=== PATIENT | male | born 1955 | race Caucasian/White ===

== ENCOUNTER → 2024-05-06 15:11 | Outpatient (REF) | payer OTHER, SELFPAY | LOC: RAD 15:11 | PROVIDERS: ATTENDING PHYSICIAN Family Medicine | DX: R59.1 Generalized enlarged lymph nodes (principal) | CPT/HCPCS: 71250 ==

== ENCOUNTER 2024-05-30 20:30 | Inpatient (IN) | payer OTHER, SELFPAY ==
[2024-05-30] VITALS (9 sets, daily range): BP systolic 122–147; BP diastolic 72–88; BMI 25.2; BMI 24.3
[2024-05-30 13:20] LABS: % Basophils 0.1 % (0-2); % Eosinophils 0.1 % (0-6); % Immature Granulocytes 0.5 % (0-0.5); % Lymphocytes 3.5 % (20.5-51.1); % Monocytes 6.4 % (1.7-9.3); % Neutrophils 89.4 % (42.2-75.2); Absolute Immature Granulocytes 0.1 10^3/uL (0-0.05); Absolute Lymphocytes 0.5 10^3/uL (1.2-3.4); Absolute Monocytes 0.9 10^3/uL (0.1-0.6); Absolute Neutrophils 12.9 10^3/uL (1.4-6.5); Hematocrit 45.1 % (39.0-52.0); Hemoglobin 15.8 g/dL (13.0-18.0); Mean Corpuscular Hgb 28.6 pg (27.0-31.0); Mean Corpuscular Volume 81.6 fL (80.0-94.0); Mean Platelet Volume 9.5 fL (7.4-10.4); Nucleated Red Blood Cells % 0 % (-); Platelet Count 195 10^3/uL (130-400); Red Blood Cell Count 5.53 10^6/uL (4.70-6.10); Red Cell Dist. Width 12.7 % (11.5-14.5); White Blood Cell Count 14.4 10^3/uL (4.8-10.8)
[2024-05-30 13:44] LABS: ALT (SGPT) 24 U/L (0-50); AST (SGOT) 26 U/L (17-59); Albumin 4.5 g/dl (3.5-5.0); Alkaline Phosphatase 75 U/L (38-126); Blood Urea Nitrogen 16 mg/dl (9-20); Calcium 9.6 mg/dl (8.4-10.2); Carbon Dioxide 23 mmol/L (22-30); Chloride 100 mmol/L (98-107); Glucose 138 mg/dl (70-99); Lipase 36 U/L (23-300); Potassium 4.1 mmol/L (3.5-5.1); Sodium 135 mmol/L (135-145); Total Bilirubin 0.8 mg/dl (0.2-1.3); Total Protein 7.1 g/dl (6.3-8.2); eGFR > 60.00
--- NOTE | 2024-05-30 14:13 | ED.GENMED ---
History of Present Illness
<Madai Serna MD, Resident - Last Filed: 05/31/24 22:02>
General
Chief Complaint: Abdominal Pain
Time Seen by Provider: 05/30/24 13:32
History of Present Illness
History of Present Illness:
The patient is a 69 years old male presented to the ER today complaining of abdominal pain. His abdominal pain started yesterday and is localized especially on his left lower abdominal quadrant. He reports that he did throw up for 6 times since
the morning. Additionally he reports that he had his last bowel movement this morning but it was a very low amount of stool. He denied bleeding from his rectal area and he denied vomiting blood. Patient has a past medical history of many
abdominal surgeries starting in 2017 and reported his last surgery was in 2018. The patient reportedly had an operation in 2017 due a bowel perforation and ileostomy for that reason and he had a reverse surgery in 2018. The patient denied having
any other abdominal problems since 2018.
PMH: BPH
If applicable-neuro sx onset
Date of onset of symptoms: 05/30/24
<Chris Burr MD - Last Filed: 06/01/24 17:01>
General
Source: patient
Exam Limitations: none
Nursing documentation reviewed up to this point in time: agreed with
Past History
<Madai Serna MD, Resident - Last Filed: 05/31/24 22:02>
Past History
ED Past Medical History: None
ED Past Surgical History: Orthopedic
Social History
Tobacco: Non-smoker (Left rotator cuff)
Alcohol: None
Drug: None
Personal:
Living: with family
Employment: Employed
Phy Exam
<Madai Serna MD, Resident - Last Filed: 05/31/24 22:02>
General Physical Exam
General Presentation: moderate distress
General age: appears stated age
General Skin: dry
General Mental: alert
Cardiovascular Exam
Cardiovascular Exam: regular rate/rhythm and no edema
Pulmonary Exam
Pulmonary Exam: lungs clear and no respiratory distress
Gastrointestinal Exam
Gastrointestinal Exam: guarding, surgical scar (on both lower abdominal quadrants ) and tender
Palpation: left upper quadrant: Moderate tenderness and left lower quadrant: Severe tenderness
Neurological Exam
Neurological Exam: alert and oriented x3
Course
<Madai Serna MD, Resident - Last Filed: 05/31/24 22:02>
Orders/Labs/Results
Orders:
Orders
05/30/24 13:04
IV Insert/Care/Rem.- Treatment PRN
05/30/24 13:10
Complete Blood Count/With Diff Urgent
Comprehensive Metabolic Panel Urgent
Lipase Urgent
05/30/24 13:58
0.9% Sodium Chloride 500 ml [Nss] 500 ml IV BOLUS
HYDROmorphone [Dilaudid] 0.5 mg IV NOW STA
Ondansetron Injectable [Zofran] 4 mg IV NOW STA
CR Obstruct Series W/pa Chest Urgent
Comment:
Reason For Exam: ABDOMINAL PAIN
05/30/24 14:22
CT Abd/pel W Iv And Oral Contr Urgent
Comment:
Reason For Exam: LLQ pain
Iohexol [Omnipaque] See Protocol PO NOW STA
05/30/24 16:12
HYDROmorphone [Dilaudid] 0.5 mg .ROUTE .STK-MED ONE
Ondansetron Injectable [Zofran] 4 mg .ROUTE .STK-MED ONE
05/30/24 16:14
HYDROmorphone [Dilaudid] 0.5 mg IV NOW STA
Ondansetron Injectable [Zofran] 4 mg IV NOW STA
05/30/24 19:01
Admit/Transfer Patient As Directed
Co-Sign Provider:
Level of Care: Inpatient admission
Assign to:: Medical/Surgical
Physician / Group: dionisio
Diagnosis: SBO
Reason for Hospitalization: SBO
Expected length of stay greater than two midnights?: Yes
ELOS- Estimated Length of Stay in days: 3
I certify the patient meets the requirements for IP care: Yes
PRN Pain Medication Management As Directed
May give lesser potent ordered pain med per pt: Yes
preference::
Protocol:: Medication orders for pain may be administered in a
manner that supports deferring to patient preference
when the pt is:
- Requesting an ordered lesser potent pain medication.
Least to most potent pain medications are defined
as: acetaminophen < NSAID < tramadol < opioids
(morphine, oxycodone, hydromorphone).
- Requesting a lesser dose of the same medication IF
ORDERED.
- Requesting a less intrusive route of administration
if both routes are prescribed by the provider (PO <
IV).
05/30/24 19:02
Code Status As Directed
Resuscitation Status: Full Code
05/30/24 19:20
Ondansetron Injectable [Zofran] 4 mg .ROUTE .STK-MED ONE
Ondansetron Injectable [Zofran] 4 mg IV NOW STA
Ondansetron Injectable [Zofran] 4 mg IV NOW STA
05/30/24 20:20
SURGICAL CONSULT Routine
Consulting Provider: Tani Morrison
Was physician already notified: Yes
05/30/24 20:21
EKG [Electrocardiogram (*1)] Stat
Reason for Study: QTc Monitoring
05/30/24 21:12
0.9% Sodium Chloride 1000 ml [Nss] 1,000 ml IV 80 mls/hr
HYDROmorphone [Dilaudid] 0.5 mg IV Q4HPRN PRN
Ondansetron Injectable [Zofran] 4 mg IV Q6HPRN PRN
05/30/24 21:12
Activity As Directed
Activity Level: As Tolerated
Bladder Scan As Directed
Follow Bladder Retention/Intermittent Cath Algorithm?: Yes
PRN if no void in __ hours: 6
Frequency: Per Retention Algorithm
If Bladder Scan Result >: 400
then:: Straight cath
Straight Cath As Directed
Frequency: Per Retention Algorithm
Additional Instructions: straight cath as needed per acute urinary retention algorithm for 24 hrs
Additional Instructions: for bladder scan greater than 400 mL
Vital Signs As Directed
Frequency: Per unit guidelines
DX Deep Vein Thrombosis Video Routine
05/31/24 Breakfast
NPO
Allow oral meds: No
Allow clear liquids: No
05/31/24 06:56
Basic Metabolic Panel IN AM
Complete Blood Count/No Diff IN AM
05/31/24 18:00
Enoxaparin Sodium [Lovenox] 40 mg SC QPM
06/01/24 06:28
Basic Metabolic Panel IN AM
Complete Blood Count/No Diff IN AM
06/02/24 06:00
Basic Metabolic Panel IN AM
06/03/24 06:00
Basic Metabolic Panel IN AM
06/04/24 06:00
Basic Metabolic Panel IN AM
Abnormal Lab Results
05/30/24
13:10
WBC 14.4 H 10^3/uL
(4.8-10.8)
Abs Immat Gran (auto) 0.1 H 10^3/uL
(0-0.05)
Absolute Neuts (auto) 12.9 H 10^3/uL
(1.4-6.5)
Absolute Lymphs (auto) 0.5 L 10^3/uL
(1.2-3.4)
Absolute Monos (auto) 0.9 H 10^3/uL
(0.1-0.6)
Neutrophils % 89.4 H %
(42.2-75.2)
Lymphocytes % 3.5 L %
(20.5-51.1)
Glucose 138 H mg/dl
(70-99)
05/30/24 13:10
05/30/24 13:10
Vital Signs
Initial and Last Documented VS:
Initial Vital Signs
Temp Pulse Resp BP Pulse Ox
98.2 F 95 18 126/83 97
05/30/24 12:46 05/30/24 12:46 05/30/24 12:46 05/30/24 12:46 05/30/24 12:46
Last Documented Vital Signs
Temp Pulse Resp BP Pulse Ox
98.2 F 89 16 150/82 94
06/01/24 15:33 06/01/24 15:33 06/01/24 15:33 06/01/24 15:33 06/01/24 16:29
<Chris Burr MD - Last Filed: 06/01/24 17:01>
Orders/Labs/Results
Orders:
Orders
05/30/24 13:04
IV Insert/Care/Rem.- Treatment PRN
05/30/24 13:10
Complete Blood Count/With Diff Urgent
Comprehensive Metabolic Panel Urgent
Lipase Urgent
05/30/24 13:58
0.9% Sodium Chloride 500 ml [Nss] 500 ml IV BOLUS
HYDROmorphone [Dilaudid] 0.5 mg IV NOW STA
Ondansetron Injectable [Zofran] 4 mg IV NOW STA
CR Obstruct Series W/pa Chest Urgent
Comment:
Reason For Exam: ABDOMINAL PAIN
05/30/24 14:22
CT Abd/pel W Iv And Oral Contr Urgent
Comment:
Reason For Exam: LLQ pain
Iohexol [Omnipaque] See Protocol PO NOW STA
05/30/24 16:12
HYDROmorphone [Dilaudid] 0.5 mg .ROUTE .STK-MED ONE
Ondansetron Injectable [Zofran] 4 mg .ROUTE .STK-MED ONE
05/30/24 16:14
HYDROmorphone [Dilaudid] 0.5 mg IV NOW STA
Ondansetron Injectable [Zofran] 4 mg IV NOW STA
05/30/24 19:01
Admit/Transfer Patient As Directed
Co-Sign Provider:
Level of Care: Inpatient admission
Assign to:: Medical/Surgical
Physician / Group: dionisio
Diagnosis: SBO
Reason for Hospitalization: SBO
Expected length of stay greater than two midnights?: Yes
ELOS- Estimated Length of Stay in days: 3
I certify the patient meets the requirements for IP care: Yes
PRN Pain Medication Management As Directed
May give lesser potent ordered pain med per pt: Yes
preference::
Protocol:: Medication orders for pain may be administered in a
manner that supports deferring to patient preference
when the pt is:
- Requesting an ordered lesser potent pain medication.
Least to most potent pain medications are defined
as: acetaminophen < NSAID < tramadol < opioids
(morphine, oxycodone, hydromorphone).
- Requesting a lesser dose of the same medication IF
ORDERED.
- Requesting a less intrusive route of administration
if both routes are prescribed by the provider (PO <
IV).
05/30/24 19:02
Code Status As Directed
Resuscitation Status: Full Code
05/30/24 19:20
Ondansetron Injectable [Zofran] 4 mg .ROUTE .STK-MED ONE
Ondansetron Injectable [Zofran] 4 mg IV NOW STA
Ondansetron Injectable [Zofran] 4 mg IV NOW STA
05/30/24 20:20
SURGICAL CONSULT Routine
Consulting Provider: Tani Morrison
Was physician already notified: Yes
05/30/24 20:21
EKG [Electrocardiogram (*1)] Stat
Reason for Study: QTc Monitoring
05/30/24 21:12
0.9% Sodium Chloride 1000 ml [Nss] 1,000 ml IV 80 mls/hr
HYDROmorphone [Dilaudid] 0.5 mg IV Q4HPRN PRN
Ondansetron Injectable [Zofran] 4 mg IV Q6HPRN PRN
05/30/24 21:12
Activity As Directed
Activity Level: As Tolerated
Bladder Scan As Directed
Follow Bladder Retention/Intermittent Cath Algorithm?: Yes
PRN if no void in __ hours: 6
Frequency: Per Retention Algorithm
If Bladder Scan Result >: 400
then:: Straight cath
Straight Cath As Directed
Frequency: Per Retention Algorithm
Additional Instructions: straight cath as needed per acute urinary retention algorithm for 24 hrs
Additional Instructions: for bladder scan greater than 400 mL
Vital Signs As Directed
Frequency: Per unit guidelines
DX Deep Vein Thrombosis Video Routine
05/31/24 Breakfast
NPO
Allow oral meds: No
Allow clear liquids: No
05/31/24 06:56
Basic Metabolic Panel IN AM
Complete Blood Count/No Diff IN AM
05/31/24 18:00
Enoxaparin Sodium [Lovenox] 40 mg SC QPM
06/01/24 06:28
Basic Metabolic Panel IN AM
Complete Blood Count/No Diff IN AM
06/02/24 06:00
Basic Metabolic Panel IN AM
06/03/24 06:00
Basic Metabolic Panel IN AM
06/04/24 06:00
Basic Metabolic Panel IN AM
Abnormal Lab Results
05/30/24
13:10
WBC 14.4 H 10^3/uL
(4.8-10.8)
Abs Immat Gran (auto) 0.1 H 10^3/uL
(0-0.05)
Absolute Neuts (auto) 12.9 H 10^3/uL
(1.4-6.5)
Absolute Lymphs (auto) 0.5 L 10^3/uL
(1.2-3.4)
Absolute Monos (auto) 0.9 H 10^3/uL
(0.1-0.6)
Neutrophils % 89.4 H %
(42.2-75.2)
Lymphocytes % 3.5 L %
(20.5-51.1)
Glucose 138 H mg/dl
(70-99)
05/30/24 13:10
05/30/24 13:10
Vital Signs
Initial and Last Documented VS:
Initial Vital Signs
Temp Pulse Resp BP Pulse Ox
98.2 F 95 18 126/83 97
05/30/24 12:46 05/30/24 12:46 05/30/24 12:46 05/30/24 12:46 05/30/24 12:46
Last Documented Vital Signs
Temp Pulse Resp BP Pulse Ox
98.2 F 89 16 150/82 94
06/01/24 15:33 06/01/24 15:33 06/01/24 15:33 06/01/24 15:33 06/01/24 16:29
<Madai Serna MD, Resident - Last Filed: 05/31/24 22:02>
MDM/Problems Addressed
Differential Diagnosis Includes:
Bowel obstruction/perforation, abdominal adhesions, diverticulosis
MDM/Problems Addressed:
Abdominal CR obs was ordered to assess bowel obstruction/perforation.
<Madai Serna MD, Resident - Last Filed: 05/31/24 22:02>
*Critical Care Note
Total Time (30-74mins, 75-104mins- exclusive of procedures): Not Applicable
ED Attending Note
<Madai Serna MD, Resident - Last Filed: 05/31/24 22:02>
-
Portions of this chart may have been created with voice recognition software.� Occasional wrong word or��sound alike� substitutions may have occurred due to the inherent limitations of voice recognition software.
<Chris Burr MD - Last Filed: 06/01/24 17:01>
ED Attending Note
Patient seen and examined by attending physician: Yes
ED Attending Note:
Patient presents ED secondary to sudden onset of left-sided abdominal pain associate with nausea vomiting since yesterday evening, shortly after having dinner. Abdominal pain described as sharp, crampy, nonradiating, associated with mild abdominal
distention. Denies any alleviating or exacerbating factors. Patient's abdominal surgical history is significant for previous diverticulitis, resulting in perforation, as well as ileostomy.
Physical Exam
General: moderate painful distress, not acutely ill. afebrile
Head: nc/at. eomi
Neck: supple. no meningeal signs.
Heart: s1/s2 regular rate and rhythm, no murmur. equal radial pulses.
Lungs: no acute respiratory distress. clear bilaterally
Abdomen: normal bowel sounds. moderate tenderness to palpation over LLQ with guarding. mild distention noted
Neuro: alert and oriented. no focal neurological deficits
Skin: no rash
Psychiatric: well kept. interactive and cooperative
Extremities: no edema. no calf tenderness.
Obstruction series ordered immediately, with concern for potential perforated bowel. No free air noted on x-ray, but suggestive of potential bowel obstruction. As such, CT abdomen pelvis ordered, with contrast.
CT abdomen pelvis concerning for high-grade bowel obstruction. NG tube will be placed in ED.
Dr. Morrison, colorectal surgeon, notified via [facility] text.
Critical care statement: A total of 40 minutes of critical care time was provided for this patient. This includes management of unstable vital signs, evaluation of the patient at bedside, reviewing the patient's pertinent medical records, discussion
with consultants, review of old EKGs and review of pertinent medical records. This time with separate from time utilized to perform the aforementioned documented procedures
Discharge Plan
Departure
Patient Disposition: Admit
Date of Disposition: 05/30/24
Time of Disposition: 18:25
Presentation/result/management discussed w/ accepting MD/DO: Hospitalist
Discharge Problem:
Bowel obstruction
Interventions
Interventions:
*Risk Screen - Suicide Last Done: 05/30/24 12:46
*General Assessment Last Done: 05/30/24 12:46
*Neglect/Abuse Screening Last Done: 05/30/24 12:46
ED- Fall Risk Assessment Last Done: 05/30/24 21:04
*ED COVID-19 Vaccine History Last Done: 05/30/24 21:04
*Nursing Disposition Last Done: 05/30/24 21:04
VK-Irauqq-Qakseptrae Assessment Last Done: 05/30/24 14:30
Discharge Date and Time
Discharge Date/Time: 05/30/24 21:04
[2024-05-30] MEDS: ZOFRAN 4 MG IV ×3 (14:21→19:20)
[2024-05-30] MEDS: DILAUDID 0.5 MG IV ×2 (14:23→16:15)
[2024-05-30] MEDS: NSS 500 IV (14:29)
[2024-05-30] MEDS: OMNIPAQUE 50 ML PO (14:34)
--- NOTE | 2024-05-30 18:43 | HPS.HSE ---
Family Physician
-
Family Physician: Xander Guthrie
Chief Complaint
-
left lower quadrant pain
History of Present Illness
69 years old male with past medical history for hernia, dyslipidemia, BPH, perforated bowel status post ileostomy, colostomy reversal presented to us with left lower quadrant pain radiating to his back since yesterday dinner. he walked around all
last night. he vomited couple times since last night. he is been having very small bowel since yesterday. He denied bleeding from his rectal area and he denied vomiting blood. Patient has a past medical history of many abdominal surgeries
starting in 2017 and reported his last surgery was in 2018. The patient reportedly had an operation in 2017 due a bowel perforation and ileostomy for that reason and he had a reverse surgery in 2018. The patient denied having any other abdominal
problems since 2018. denied FIELDS, dizzy or syncopal episode. denied fever, chills, chest pain ,sob. denied dysuria or hematuria.
NGT placed in ER. admitting for further management.
Medical History
Past Medical History
Past Medical History: Reports Other
Additional Past Medical History:
Umbilical hernia
Dyslipidemia
BPH
Diverticulosis
Mood disorder
Bowel perforation
Past Surgical History: Reports Other
Additional Past Surgical History:
Colostomy
Left shoulder surgery
reversal of ileostomy and colostomy
Social History
Tobacco: Former Smoker
Alcohol: Occasional
Drug: None
Employment: Employed
Family History
Family History: Not pertinent
Allergies / Home Medications
Allergies reflects when Allergies were last updated in [facility].
Home Medications with original date entered in [facility]
Allergy/Medication List:
Allergies
Allergy/AdvReac Type Severity Reaction Status Date / Time
oxycodone Allergy Unknown Unknown Verified 05/30/24 14:21
Home Medications
sertraline 25 mg tablet 25 mg PO HS 07/20/17
Iron 65 mg PO QPM 12/10/17
Prostate Plus Health Complex 1 tab PO QPM 12/10/17
lorazepam 0.5 mg tablet 0.5 mg PO PRN PRN anxiety 12/10/17
auezemky-kls-SD 0.4 mg-calcium 162 mg-iron 18 kk-cudlasa-udkvxu tablet 1 tab PO DAILY 12/10/17
cyanocobalamin (vitamin B-12) 2,500 mcg chewable tablet 2,500 mcg PO DAILY 03/15/18
glucosamine BYd-Y1-Xnvvuqpax maynor 1,500 mg-400 unit-100 mg tablet (Osteo Bi-Flex (5-Loxin)) 2 tab PO DAILY 03/15/18
Saccharomyces boulardii 250 mg capsule 250 mg PO BID #30 caps 03/25/18
hydrocodone 5 mg-acetaminophen 325 mg tablet 1 - 2 tab PO Q4HPRN PRN pain #40 tabs 03/25/18
tamsulosin 0.4 mg capsule 0.4 mg PO DAILY #14 caps 03/25/18
Review of Systems
-
Constitutional: Reports No Symptoms
EENT: Reports No Symptoms
Respiratory: Reports No Symptoms
Cardiac: Reports No Symptoms
Abdomen/GI: Reports Abdominal Pain, Nausea and Vomiting
: Reports No Symptoms
Musculoskeletal: Reports No Symptoms
Skin: Reports No Symptoms
Neurological: Reports No Symptoms
Endocrine: Reports No Symptoms
Hematologic/Lymphatic: Reports No Symptoms
Psych: Reports No Symptoms
Physical Exam
Vital Signs
Vital Signs
Temp Pulse Resp BP Pulse Ox
98.2 F 76 18 130/72 98
05/30/24 12:46 05/30/24 18:15 05/30/24 18:15 05/30/24 18:08 05/30/24 18:33
Physical Exam
General: Well Developed, Well Nourished and No Apparent Distress
HEENT: NormoCephalic, Moist mucous membranes and Atraumatic
Respiratory: Clear
Cardiac: S1/S2 and Regular Rhythm; No Murmur or Rub
GI: Normal Bowel Sounds, Tender and Distended; No Organomegaly
Rectal: Deferred by Provider
Musculoskeletal: No Clubbing, No Cyanosis and No Edema
Skin: No Rash
Neuro: AO x 3 and Nonfocal/grossly intact
Psych: Calm
Laboratory Results
-
05/30/24 13:10
05/30/24 13:10
Laboratory Results
Total Bilirubin 0.8 mg/dl (0.2-1.3) 05/30/24 13:10
AST 26 U/L (17-59) 05/30/24 13:10
ALT 24 U/L (0-50) 05/30/24 13:10
Alkaline Phosphatase 75 U/L (38-126) 05/30/24 13:10
Lipase 36 U/L (23-300) 05/30/24 13:10
Data Reviewed
-
Diagnostic Radiology: Report Reviewed by me
CT Scan: Report Reviewed by me
Lab Data: Labs Reviewed by me
Impression/Plan
-
#high grade Small bowel obstruction
#perforated diverticulum
-NGT
-NPO
-surgery consulted
-CT abdomen pelvis with Postop changes of prior partial bowel resection. There are numerous dilated loops of small bowel likely jejunum/ileum within the left hemiabdomen with transition point in the anterior lower midline abdomen, below the
umbilicus. There is associated mesenteric edema along the small bowel loops consistent with high-grade small bowel obstruction. Recommend surgical consultation.Umbilical hernia containing nonobstructed bowel.Colonic diverticulosis without evidence
of diverticulitis.
-chest abdomen x ray with Several dilated small bowel loops within the left upper quadrant and midabdomen measuring up to 4.3 cm with air-fluid levels. Scattered gas and stool within the colon. Findings of prior intra-abdominal surgery with enteric
anastomosis within the right lower quadrant pelvis. Findings suspicious for developing or partial small bowel obstruction.
-dlaudid prn for pain
-zofran prn for n/v
#leukocytosis likely reaction
-wbc 14.4
-patient is afebrile
-ctm
#BPH
-Flomax,finasteride held
-bladder scan
#DVT prophylaxis
-Lovenox
#CODE status
-full code
--- NOTE | 2024-05-30 20:28 | W.PN.UPDATE ---
Update Note
Progress Note Update
This is an addendum to the H&P written by Cristal Ferraro on 05/30/24. Patient seen and examined independently with [employer].
68-year-old male past medical history of bowel perforation status post ileostomy, colostomy status post reversal, BPH here for abdominal pain, distention and vomiting.
CT abdomen pelvis shows high-grade small bowel obstruction. NG tube placed. N.p.o. including oral medications, IV fluids, Zofran, Dilaudid, general surgery consulted.
[2024-05-30] MEDS: NSS 1000 IV (21:18)
--- NOTE | 2024-05-30 21:30 | PTCARENOTE ---
Pt is aoox3, reports abd tender but denies any pain. pt has ngt through right nare. pt placed on low intermittent suction. pt oriented to room w/ call mills in reach.
[2024-05-31] MEDS: CHLORASEPTIC/SORE THROAT SPRAY 2 SPRAY PO (06:00)
[2024-05-31 07:12] VITALS: BP 129/72
--- NOTE | 2024-05-31 07:34 | W.PN.HOSP.TC ---
Today's Communication/Plan
-
see bold
Assessment / Plan
Assessment / Plan
HPI: 69 years old male with past medical history for hernia, dyslipidemia, BPH, perforated bowel status post ileostomy, colostomy reversal presented to us with left lower quadrant pain radiating to his back since yesterday dinner. he walked around
all last night. he vomited couple times since last night. he is been having very small bowel since yesterday. He denied bleeding from his rectal area and he denied vomiting blood. Patient has a past medical history of many abdominal surgeries
starting in 2017 and reported his last surgery was in 2018. The patient reportedly had an operation in 2017 due a bowel perforation and ileostomy for that reason and he had a reverse surgery in 2018. The patient denied having any other abdominal
problems since 2018. denied FIELDS, dizzy or syncopal episode. denied fever, chills, chest pain ,sob. denied dysuria or hematuria.
#Acute partial small bowel obstruction
H/o Mukul's and subsequent ileostomy with reversal with Dr. Kaiser
Appreciate general surgery input, no plans for urgent surgery
continue NG tube, n.p.o., IV fluids, bowel rest
#Leukocytosis
Reactive, resolved
Monitor off antibiotic
#Anxiety
Hold Ativan
#Benign prostatic hypertrophy
Hold Flomax, finasteride�tadalafil
DVT prophylaxis�subcu Lovenox
Full code
Total time spent to see the patient on the floor, examine the patient, review data and lab results, discuss treatment plan with patient, nursing staff around 40 minutes.
Physical Exam
General: No acute distress
HEENT: Normocephalic, Atraumatic, EOMI, MMM
Respiratory: Clear to Auscultation bilaterally
Cardiac: Normal S1/S2, Regular Rate and Rhythm
GI: Soft, Nontender, Nondistended, Normal Bowel Sounds
Extremities: No Clubbing, Cyanosis, or Edema
Neuro: Nonfocal/Grossly Intact
Psych: Calm, Cooperative
Derm: No Visible lesions
Anticipated Discharge: > 48 hours
Subjective/Interval History
-
Date of Service: May 31, 2024
Patient reports abdominal pain resolved. He is passing gas. No bowel movement. He complains of a sore throat. No nausea.
Objective Data
-
Labs:
Laboratory Results
05/31/24
06:56
WBC Pending
Hgb Pending
Hct Pending
Plt Count Pending
Sodium Pending
Potassium Pending
Chloride Pending
Carbon Dioxide Pending
BUN Pending
Creatinine Pending
Glucose Pending
Calcium Pending
Vital Signs:
Vital Signs
Temp Pulse Resp BP Pulse Ox
98.2 F 82 18 124/74 94
05/31/24 04:34 05/30/24 23:28 05/30/24 23:28 05/30/24 23:28 05/30/24 23:28
I&O
05/30/24 05/31/24 06/01/24
06:59 06:59 06:59
Intake Total 1380 / 1380
Output Total 360 / 360
Balance 1020 / 1020
[2024-05-31 07:57] LABS: Hemoglobin 14.7 g/dL (13.0-18.0); Mean Corp Hgb Conc. 34.2 g/dL (33.0-37.0); Mean Corpuscular Hgb 28.9 pg (27.0-31.0); Mean Corpuscular Volume 84.5 fL (80.0-94.0); Mean Platelet Volume 9.9 fL (7.4-10.4); Platelet Count 191 10^3/uL (130-400); Red Blood Cell Count 5.09 10^6/uL (4.70-6.10); Red Cell Dist. Width 13.2 % (11.5-14.5); White Blood Cell Count 8.7 10^3/uL (4.8-10.8)
[2024-05-31] MEDS: ZOFRAN 4 MG IV (09:16)
[2024-05-31] MEDS: NSS 1000 IV ×2 (09:39→21:52)
[2024-05-31 09:44] LABS: Blood Urea Nitrogen 17 mg/dl (9-20); Calcium 8.6 mg/dl (8.4-10.2); Carbon Dioxide 27 mmol/L (22-30); Chloride 101 mmol/L (98-107); Estimated Creatinine Clearance 61 ml/min; Glucose 104 mg/dl (70-99); Potassium 3.9 mmol/L (3.5-5.1); Sodium 137 mmol/L (135-145); eGFR > 60.00
--- NOTE | 2024-05-31 12:19 | CON.GS ---
Medical History
-
Chief Complaint: abdominal pain/n/v
History of Present Illness:
68 yo male with a h/o perforated diverticulitis requiring Mukul's resection 07/2017 which was later reversed with loop ileostomy creation for protection of the anastomosis site 12/2017 with takedown of the ileostomy and SBR 03/[address] Kaiser
who presented yesterday with nausea and vomiting with LLQ pain for about 24 hours. An NGT was placed in the ED with initially high outputs reported which has dropped off significantly since that time. He notes some passage of flatus this am and
overall feeling better although he has had some nausea. LLQ tenderness persists with mild to moderate distention noted.
Past Medical History
Past Medical History: Diverticulitis, Hypercholesterolemia and Other (BPH)
Past Surgical History: Bowel Resection (Harmann's 2016, colostomy reversal with loop ileostomy 2017 and then takedown of ileostomy later that year) and Orthopedic (left shoulder)
Social History
Tobacco: Former Smoker
Alcohol: Occasional
Family History
Family History: Reviewed & Not Pertinent
Allergies / Home Medications
Allergy/AdvReac Type Severity Reaction Status Date / Time
oxycodone Allergy Unknown Unknown Verified 05/30/24 14:21
�Medication �Instructions �Recorded �Confirmed �Type
lorazepam 0.5 mg tablet 0.5 mg PO PRN PRN anxiety 12/10/17 05/30/24 History
finasteride 5 mg-tadalafil 5 mg 1 cap PO DAILY 05/30/24 05/30/24 History
capsule
tamsulosin 0.4 mg capsule 0.8 mg PO DAILY 05/30/24 05/30/24 History
Review of Systems
-
History Source: Patient and Family
All other systems: Negative unless noted
A 10 point review of systems was completed, and was negative except as per HPI.
Physical Exam
Vital Signs
Temp Pulse Resp BP Pulse Ox
98.8 F 83 16 129/72 96
05/31/24 07:12 05/31/24 07:12 05/31/24 07:12 05/31/24 07:12 05/31/24 07:12
05/30/24 05/31/24 06/01/24
06:59 06:59 06:59
Actual Weight 70.449 kg
Body Mass Index (BMI) 24.3
Lab Results
05/31/24 06:56
05/31/24 06:56
WBC 8.7 10^3/uL (4.8-10.8) 05/31/24 06:56
Hgb 14.7 g/dL (13.0-18.0) 05/31/24 06:56
Hct 43.0 % (39.0-52.0) 05/31/24 06:56
Plt Count 191 10^3/uL (130-400) 05/31/24 06:56
Abs Immat Gran (auto) 0.1 10^3/uL (0-0.05) H 05/30/24 13:10
Neutrophils % 89.4 % (42.2-75.2) H 05/30/24 13:10
Physical Exam
General: Well Developed and Well Nourished
HEENT: Normocephalic and Moist Mucous Membranes
GI: Soft, Tender (LLQ ), Distended and Other (UH present, soft/reducible)
Skin: Warm and Dry
Neuro: Awake, Alert and AO x 3
Psych: Calm
Data Reviewed
-
CT Scan: Image Personally Visualized and interpreted, Report Reviewed by me, Discussed with Physician and Discussed with Patient
Labs: Labs Reviewed by me, Discussed with Physician and Discussed with Patient
Old Records: Reviewed
Assessment / Plan
-
68 yo male with a h/o Mukul's and subsequent ileostomy with reversal with Dr. Kaiser who presented with n/v/LLQ abdominal pain through the ED yesterday. NGT placed with relief of symptoms. Some discomfort and distention persists. CT imaging
consistent with adhesive SBO, UH present and containing bowel but not causing this obstruction. AFVSS. Leukocytosis present on admission and now resolved. Starting to pass some flatus suggestive of a partial obstruction.
--C/W NGT to suction
--NPO/IVF
--XR of ABD this am
--No plans for urgent surgery. Will follow with bowel rest/decompression and supportive measures for improvement at this time
Medical management as per primary team
--- NOTE | 2024-05-31 15:40 | CM ---
met with patient at bedside.patient lives alone in an apt with no kinsey,his bed and bath is on first level,he amb i and is I with his adl.
his pcp is dr alyse orellana and he uses [facility] in [place].he has had a vn through [facility] but no ip rehab episodes.
PMH:diverticulitis,left rottor cuff problem,bowel perforation with ileostomy 2017,then ileostomy reversal in 2018, bph
patient adm with sbo.he has an ngt to low suction,ivf,iv dialuaid,iv zofran.plan is:dc home with no needs when stable for dc.
[2024-05-31 15:45] VITALS: BP 135/77
[2024-05-31] MEDS: LOVENOX 40 MG SC (17:53)
[2024-05-31 23:00] VITALS: BP 135/76
[2024-06-01 07:01] LABS: Hematocrit 38.8 % (39.0-52.0); Hemoglobin 13.3 g/dL (13.0-18.0); Mean Corp Hgb Conc. 34.3 g/dL (33.0-37.0); Mean Corpuscular Hgb 28.5 pg (27.0-31.0); Mean Corpuscular Volume 83.3 fL (80.0-94.0); Mean Platelet Volume 9.6 fL (7.4-10.4); Platelet Count 178 10^3/uL (130-400); Red Blood Cell Count 4.66 10^6/uL (4.70-6.10); Red Cell Dist. Width 13.2 % (11.5-14.5); White Blood Cell Count 8.8 10^3/uL (4.8-10.8)
[2024-06-01 07:18] LABS: Blood Urea Nitrogen 15 mg/dl (9-20); Calcium 8.6 mg/dl (8.4-10.2); Carbon Dioxide 28 mmol/L (22-30); Chloride 104 mmol/L (98-107); Estimated Creatinine Clearance 74 ml/min; Glucose 92 mg/dl (70-99); Magnesium 2.1 mg/dl (1.6-2.3); Phosphorus 2.9 mg/dl (2.5-4.5); Potassium 3.5 mmol/L (3.5-5.1); Sodium 139 mmol/L (135-145); eGFR > 60.00
[2024-06-01 07:52] VITALS: BP 145/79
--- NOTE | 2024-06-01 08:24 | W.PN.HOSP.TC ---
Today's Communication/Plan
-
see bold
Assessment / Plan
Assessment / Plan
HPI: 69 years old male with past medical history for hernia, dyslipidemia, BPH, perforated bowel status post ileostomy, colostomy reversal presented to us with left lower quadrant pain radiating to his back since yesterday dinner. he walked around
all last night. he vomited couple times since last night. he is been having very small bowel since yesterday. He denied bleeding from his rectal area and he denied vomiting blood. Patient has a past medical history of many abdominal surgeries
starting in 2017 and reported his last surgery was in 2018. The patient reportedly had an operation in 2017 due a bowel perforation and ileostomy for that reason and he had a reverse surgery in 2018. The patient denied having any other abdominal
problems since 2018. denied FIELDS, dizzy or syncopal episode. denied fever, chills, chest pain ,sob. denied dysuria or hematuria.
#Acute partial small bowel obstruction
H/o Mukul's and subsequent ileostomy with reversal with Dr. Kaiser
Appreciate general surgery input, no plans for urgent surgery
Abdominal x-ray today with improvement
Currently with NG tube, for clamp trial today
Continue IV fluids, possibly for clears if he does well
#Leukocytosis
Reactive, resolved
Monitor off antibiotic
#Anxiety
Hold po Ativan
#Benign prostatic hypertrophy
Hold Flomax, finasteride�tadalafil
DVT prophylaxis�subcu Lovenox
Full code
Total time spent to see the patient on the floor, examine the patient, review data and lab results, discuss treatment plan with patient, nursing staff around 38 minutes.
Physical Exam
General: No acute distress
HEENT: Normocephalic, Atraumatic, EOMI, MMM, +NGT
Respiratory: Clear to Auscultation bilaterally
Cardiac: Normal S1/S2, Regular Rate and Rhythm
GI: Soft, Nontender, Nondistended, hypoactive bowel sounds
Extremities: No Clubbing, Cyanosis, or Edema
Neuro: Nonfocal/Grossly Intact
Psych: Calm, Cooperative
Anticipated Discharge: 24 - 48 hours
Subjective/Interval History
-
Date of Service: June 01, 2024
Patient had flatus and stool. No nausea, no vomiting. No fever.
Objective Data
-
Labs:
Laboratory Results
06/01/24
06:28
WBC 8.8
Hgb 13.3
Hct 38.8 L
Plt Count 178
Sodium 139
Potassium 3.5
Chloride 104
Carbon Dioxide 28
BUN 15
Creatinine 0.9
Glucose 92
Calcium 8.6
Vital Signs:
Vital Signs
Temp Pulse Resp BP Pulse Ox
98 F 80 16 135/76 93
05/31/24 23:00 05/31/24 23:00 05/31/24 23:00 05/31/24 23:00 05/31/24 23:00
I&O
05/31/24 06/01/24 06/02/24
06:59 06:59 06:59
Intake Total 1380 / 1380 2100 / 2100
Output Total 360 / 360 900 / 900
Balance 1020 / 1020 1200 / 1200
[2024-06-01] MEDS: NSS with KCL 20 MEQ 1000 IV ×2 (10:04→21:33)
--- NOTE | 2024-06-01 12:57 | W.PN.GS2 ---
Today's Communication / Plan
-
Clamp trial
Assessment / Plan
-
68 yo male with a h/o Mukul's with pSBO secondary to adhesions
AFVSS
Clinically improving with flatus/stool. Some improvement on f/u XR as well
--Clamp trial of ngt. Ok for clears if does well.
--Continue IVF
--No plans for urgent surgery. Will follow with bowel rest/decompression and supportive measures for improvement at this time
Medical management as per primary team
Subjective Data
-
Date of Service: June 01, 2024
Patient seen and examined at bedside with Dr. Morrison. Denies n/v. Passing flatus and had a BM. Pain improved.
Objective Data
-
Intake and Output
05/31/24 06/01/24 06/02/24
06:59 06:59 06:59
Intake Total 1380 / 1380 2100 / 2100
Output Total 360 / 360 900 / 900
Balance 1020 / 1020 1200 / 1200
Intake:
Oral fluids 90 / 90
IV fluids (Total) 780 / 780 1920 / 1920
Amount instilled into GI Tube ( 600 / 600 90 / 90
Total)
[place] Sump 600 / 600 90 / 90
Output:
Gastrointestinal tube output ( 60 / 60 400 / 400
Total)
[place] Sump 60 / 60 400 / 400
Urine, Voided 300 / 300 500 / 500
Other:
Number of approximated MODERATE 1
amounts of urine
Vital Signs
Temp Pulse Resp BP Pulse Ox
98.2 F 79 16 145/79 97
06/01/24 07:52 06/01/24 07:52 06/01/24 07:52 06/01/24 07:52 06/01/24 09:03
Lab Results
06/01/24 06:28
06/01/24 06:28
Calcium 8.6 mg/dl (8.4-10.2) 06/01/24 06:
Phosphorus 2.9 mg/dl (2.5-4.5) 06/01/24 06:28
Magnesium 2.1 mg/dl (1.6-2.3) 06/01/24 06:28
Total Bilirubin 0.8 mg/dl (0.2-1.3) 05/30/24 13:10
AST 26 U/L (17-59) 05/30/24 13:10
ALT 24 U/L (0-50) 05/30/24 13:10
Alkaline Phosphatase 75 U/L (38-126) 05/30/24 13:10
Total Protein 7.1 g/dl (6.3-8.2) 05/30/24 13:10
Albumin 4.5 g/dl (3.5-5.0) 05/30/24 13:10
Physical Exam
-
NAD
ABD soft, mild distention, NT
--- NOTE | 2024-06-01 15:25 | PTCARENOTE ---
Rt nares NGT clamped from 11:00 am to 15:00; placed back to LIWS- 100 ml dark brown secretions drained into suction container. Pt's abd soft, non-tender; no c/o abd discomfort/nausea during NGT clamping trial. Pt reports (+) flatus. NGT removed
as ordered, pt to start clear liquid diet. Thien RAJPUT notified. Will continue to monitor.
[2024-06-01 15:33] VITALS: BP 150/82
--- NOTE | 2024-06-01 16:29 | PTCARENOTE ---
Pt AAO x3, MCCARTY well, ambulatory in room/all, brit well. VSS. On room air- pulse ox 94%. Abd soft, rounded, brit clear liquids; no c/o abd discomfort/nausea with PO intake. Voiding in BR without difficulty IVF's NSS with 20 Meq KCl @ 80 ml/hr
infusing via Rt AC site without sx of infiltration Resting in bed at present. Will continue to monitor.
[2024-06-01] MEDS: LOVENOX 40 MG SC (17:57)
[2024-06-01 23:18] VITALS: BP 121/73
[2024-06-02 07:27] VITALS: BP 138/80
[2024-06-02 09:11] LABS: Blood Urea Nitrogen 12 mg/dl (9-20); Calcium 8.6 mg/dl (8.4-10.2); Carbon Dioxide 25 mmol/L (22-30); Chloride 106 mmol/L (98-107); Estimated Creatinine Clearance 84 ml/min; Glucose 97 mg/dl (70-99); Potassium 3.8 mmol/L (3.5-5.1); Sodium 138 mmol/L (135-145); eGFR > 60.00
--- NOTE | 2024-06-02 10:17 | CM ---
Patient seen bedside.
Patient stated he is tolerating clears and would like solid food so he can go home today.
Nursing updated.
denies home care needs.
IMM completed.
Plan: home no needs.
--- NOTE | 2024-06-02 11:40 | W.PN.GS2 ---
Today's Communication / Plan
-
LRD
Assessment / Plan
-
68 yo male with a h/o Mukul's with subsequent reversal presenting with pSBO secondary to adhesions
AFVSS
Clinically improving
--Advance to LRD
--Ok for discharge to home from surgical stnadpoint once tolerating diet
Medical management as per primary team
Subjective Data
-
Date of Service: June 02, 2024
Patient seen and examined at bedside with Dr. Dutta. Denies n/v. Passing quite a bit of flatus. No BM today. Tolerating liquids. Notes he feels hungry.
Objective Data
-
Intake and Output
06/01/24 06/02/24 06/03/24
06:59 06:59 06:59
Intake Total 2100 / 2100 1680 / 1680
Output Total 900 / 900 1150 / 1150
Balance 1200 / 1200 530 / 530
Intake:
Oral fluids 90 / 90 720 / 720
IV fluids (Total) 1920 / 1920 960 / 960
Amount instilled into GI Tube ( 90 / 90 0 / 0
Total)
[place] Sump 90 / 90 0 / 0
Output:
Gastrointestinal tube output ( 400 / 400 1150 / 1150
Total)
[place] Sump 400 / 400 1150 / 1150
Urine, Voided 500 / 500
Other:
Number of approximated MODERATE 1 3
amounts of urine
Vital Signs
Temp Pulse Resp BP Pulse Ox
98.2 F 71 20 138/80 96
06/02/24 07:27 06/02/24 07:27 06/02/24 07:27 06/02/24 07:27 06/02/24 07:27
Lab Results
06/01/24 06:28
06/02/24 07:01
Calcium 8.6 mg/dl (8.4-10.2) 06/02/24 07:01
Phosphorus 2.9 mg/dl (2.5-4.5) 06/01/24 06:28
Magnesium 2.1 mg/dl (1.6-2.3) 06/01/24 06:28
Total Bilirubin 0.8 mg/dl (0.2-1.3) 05/30/24 13:10
AST 26 U/L (17-59) 05/30/24 13:10
ALT 24 U/L (0-50) 05/30/24 13:10
Alkaline Phosphatase 75 U/L (38-126) 05/30/24 13:10
Total Protein 7.1 g/dl (6.3-8.2) 05/30/24 13:10
Albumin 4.5 g/dl (3.5-5.0) 05/30/24 13:10
Physical Exam
-
NAD
ABD soft, ND, NT
[2024-06-02] MEDS: NSS with KCL 20 MEQ IV (12:29)
--- NOTE | 2024-06-02 13:21 | W.PN.HOSP.TC ---
Today's Communication/Plan
-
D/C
Assessment / Plan
Assessment / Plan
68yo M with PMHx of BPH, anxiety, hx colostomy s/p reversal in 2018. came with abdominal pain, found partial SBO,, eventually able to tolerate diet and had BM. As per colorectal Sx - will be following him as outpatient. Medically stabkle for d/c.
A/P:
#Acute partial small bowel obstruction
H/o Mukul's and subsequent ileostomy with reversal with Dr. Kaiser
Followed by [facility]
#Leukocytosis
Reactive, resolved
Monitor off antibiotic
#Anxiety
#Benign prostatic hypertrophy
cont home meds
DVT prophylaxis� Lovenox
Full code
I have spent at least 36min preparing discharge, reviewing chart, test results and direct patient care
Anticipated Discharge: Today
Subjective/Interval History
-
Date of Service: June 02, 2024
Objective Data
-
Labs:
Laboratory Results
06/02/24
07:01
Sodium 138
Potassium 3.8
Chloride 106
Carbon Dioxide 25
BUN 12
Creatinine 0.8
Glucose 97
Calcium 8.6
Vital Signs:
Vital Signs
Temp Pulse Resp BP Pulse Ox
98.2 F 71 20 138/80 96
06/02/24 07:27 06/02/24 07:27 06/02/24 07:27 06/02/24 07:27 06/02/24 07:27
I&O
06/01/24 06/02/24 06/03/24
06:59 06:59 06:59
Intake Total 2100 / 2100 1680 / 1680
Output Total 900 / 900 1150 / 1150
Balance 1200 / 1200 530 / 530
Review of Systems
-
History Source: Patient
All other systems: Reviewed and negative
Physical Exam
-
General: No Apparent Distress
HEENT: Normocephalic
Respiratory: Clear to Auscultation
Cardiac: Regular Rhythm
GI: Soft, Nontender and Nondistended
Genito-urinary: No Costovertebral Tender
Musculoskeletal: No Clubbing, No Cyanosis and No Edema
Neuro: Awake, Alert, Oriented and AO x 3
Psych: Calm
--- NOTE | 2024-06-02 13:25 | W.DCSUMMARY ---
Discharge Summary
Discharge Data
Date of Admission: 05/30/24
Date of Discharge: 06/02/24
-
Pending Results: No
Hospital Course
68yo M with PMHx of BPH, anxiety, hx colostomy s/p reversal in 2018. came with abdominal pain, found partial SBO,, eventually able to tolerate diet and had BM. As per colorectal Sx - will be following him as outpatient. Medically stabkle for d/c.
Patient verbalized understanding of instructions
I have spent at least 36min preparing d/c
Patient was managed for:
#partial SBO 2/2 adhesions
#BPH
#Anxiety d/o
Discharge Plan
-
Patient Disposition: Home (Routine Discharge)
Discharge Diagnosis/Procedures: partial SBO
Diet: Regular
Additional Diets: encourage to chew food well
Activity: As tolerated
Driving Restrictions: As prior to admission
Bathing Restrictions: None
Referrals:
Xander Kaiser MD [Active] - in two to four weeks
Xander Guthrie DO [Family Provider] -
Prescriptions:
Continued
lorazepam 0.5 MG tablet
0.5 mg PO PRN PRN (Reason: anxiety)
finasteride-tadalafil 5-5 mg Capsule
1 cap PO DAILY
tamsulosin 0.4 MG capsule
0.8 mg PO DAILY
Discharge Orders:
Discharge Patient (As Directed); Ordered 06/02/24
Ordered By: Parish Pablo
Discharge Date and Time
Print Language: [place]
== END 2024-06-02 14:06 | disposition home or self-care (01) | DRG 390 ==
LOC: 4 EAST ACU 20:30
PROVIDERS: Registered Nurse; Student in an Organized Health Care Education/Training Program; ADMITTING PHYSICIAN Hospitalist; ATTENDING PHYSICIAN Internal Medicine; EMERGENCY PHYSICIAN Emergency Medicine; FAMILY PHYSICIAN Family Medicine; OTHER PHYSICIAN Surgery
PROC: 0D9670Z Drainage of Stomach with Drainage Device, Via Natural or Artificial Opening (ICD-10-PCS; 2024-05-30)
DX: K56.51 Intestinal adhesions [bands], with partial obstruction (principal); N40.0 Benign prostatic hyperplasia without lower urinary tract symptoms; E78.00 Pure hypercholesterolemia, unspecified; K57.30 Diverticulosis of large intestine without perforation or abscess without bleeding; D72.829 Elevated white blood cell count, unspecified; F41.9 Anxiety disorder, unspecified; F39 Unspecified mood [affective] disorder; K42.9 Umbilical hernia without obstruction or gangrene; Z87.891 Personal history of nicotine dependence; Z88.5 Allergy status to narcotic agent; Z87.19 Personal history of other diseases of the digestive system
CPT/HCPCS: 43752; 74018; 74022; 74177; 80048; 80053; 83690; 83735; 84100; 85025; 85027; 93005; 96361; 96374; 96375; 96376; 99291; Q9967

== ENCOUNTER → 2024-12-12 13:16 | Outpatient (REF) | payer OTHER, SELFPAY | LOC: RCS 13:16 | PROVIDERS: ATTENDING PHYSICIAN Internal Medicine Cardiovascular Disease; FAMILY PHYSICIAN Family Medicine | DX: R07.9 Chest pain, unspecified (principal) | CPT/HCPCS: 93017; 93350 ==

== ENCOUNTER → 2025-01-30 07:43 | Outpatient (REF) | payer OTHER, SELFPAY | LOC: RAD 07:43 | PROVIDERS: ATTENDING PHYSICIAN Family Medicine | DX: R07.89 Other chest pain (principal); R06.02 Shortness of breath; R59.1 Generalized enlarged lymph nodes | CPT/HCPCS: 71270; Q9967 ==

== ENCOUNTER → 2025-07-14 20:12 | Outpatient (REF) | payer OTHER, SELFPAY | LOC: MRI 3T 20:12 | PROVIDERS: ATTENDING PHYSICIAN Family Medicine | DX: R20.0 Anesthesia of skin (principal) | CPT/HCPCS: 70553; A9575 ==